=== PATIENT | female | born 1990 | race African-American/Black ===

== ENCOUNTER 2017-01-03 16:22 | Emergency (ER) | payer SELFPAY ==
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
[2017-01-03 16:48] VITALS: BP 114/74; PULSE 90; TEMP 97.9; BMI 25.7
== END 2017-01-03 16:50 | disposition home or self-care (01) ==
LOC: FER 16:22
DX: S46.911A Strain of unspecified muscle, fascia and tendon at shoulder and upper arm level, right arm, initial encounter (principal); M77.8 Other enthesopathies, not elsewhere classified; X58.XXXA Exposure to other specified factors, initial encounter; Y93.89 Activity, other specified; Y92.9 Unspecified place or not applicable; Y99.0 Civilian activity done for income or pay
CPT/HCPCS: 99282-25

== ENCOUNTER 2017-02-12 21:18 | Emergency (ER) | payer SELFPAY ==
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
[2017-02-12 21:35] VITALS: TEMP 98.5; BMI 27.0
[2017-02-12] MEDS ORDERED: ACETAMINOPHEN 325 MG TABLET (FP) PO ONE (22:57)
[2017-02-12] MEDS ORDERED: ACETAMINOPHEN 325 MG TABLET (FP) ONE (23:15)
[2017-02-12] MEDS ORDERED: IBUPROFEN 600 MG TABLET (FP) PO ONE ×2 (23:46→23:50)
[2017-02-12 23:54] VITALS: BP 116/72; PULSE 82
== END 2017-02-12 23:59 | disposition home or self-care (01) ==
LOC: FER 21:18
DX: G44.319 Acute post-traumatic headache, not intractable (principal); S00.83XA Contusion of other part of head, initial encounter; Y04.2XXA Assault by strike against or bumped into by another person, initial encounter
CPT/HCPCS: 70450-TC; 70486-TC; 84703; 99282-25

== ENCOUNTER 2018-01-10 15:02 | Emergency (ER) | payer OTHER ==
[2018-01-10 15:34] VITALS: BP 110/59; PULSE 112; TEMP 98; BMI 26.7
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
[2018-01-10 16:58] LABS: URINE APPEARANCE CLEAR; URINE BILIRUBIN NEGATIVE (<2.0 mg/dL); URINE COLOR STRAW; URINE GLUCOSE (UA) NEGATIVE (NEGATIVE); URINE KETONE TRACE (NEGATIVE); URINE LEUK ESTERASE NEGATIVE (NEGATIVE); URINE NITRITE NEGATIVE (NEGATIVE); URINE PROTEIN NEGATIVE (NEGATIVE); URINE UROBILINOGEN NEGATIVE mg/dL (0.2-1.0)
[2018-01-10] MEDS ORDERED: SODIUM CHLORIDE 1,000 ML IV STA (17:19)
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
[2018-01-10 18:08] LABS: BASO % 0.6 % (0-2.0); EOS % 0.5 % (0-4.5); HEMATOCRIT 33.8 % (32.4-45.2); HEMOGLOBIN 11.3 GM/dL (10.7-15.3); MCHC 33.6 g/dl (32.0-36.0); MEAN CELL VOLUME 89.4 fl (80-96); MEAN PLT VOLUME 9.4 fl (7.5-11.1); MONO % 8.3 % (3.8-10.2); NEUT % 64.6 % (42.8-82.8); PLATELET COUNT 181 K/MM3 (134-434); RBC 3.78 M/mm3 (3.60-5.2); RDW 13.3 % (11.6-15.6)
[2018-01-10 18:42] LABS: ALBUMIN 3.1 g/dl (3.4-5.0); ANION GAP 6 (8-16); BILIRUBIN,TOTAL 0.3 mg/dL (0.2-1.0); BLOOD UREA NITROGEN 6 mg/dL (7-18); CALCIUM 8.4 mg/dL (8.5-10.1); CHLORIDE 103 mmol/L (98-107); CO2 27 mmol/L (21-32); CREATININE 0.6 mg/dL (0.55-1.02); GLUCOSE,RANDOM 75 mg/dL (74-106); POTASSIUM 3.7 mmol/L (3.5-5.1); SGOT/AST 28 U/L (15-37); SGPT/ALT 49 U/L (12-78); SODIUM 136 mmol/L (136-145); TOT PROT 6.6 g/dl (6.4-8.2)
[2018-01-10 18:43] LABS: ALK PHOS 51 U/L (45-117)
--- NOTE | 2018-01-10 19:44 | PDOC ---
*Physical Exam - Vital Signs Last Vital Signs Temp Pulse Resp BP Pulse Ox 98 F 112 H 19 110/59 99 01/10/18 15:27 01/10/18 15:27 01/10/18 15:27 01/10/18 15:27 01/10/18 15:27 ED Treatment Course - LABORATORY CBC & Chemistry Diagram: 01/10/18 17:43 01/10/18 17:43 - ADDITIONAL ORDERS Additional order review: Laboratory Results 01/10/18 01/10/18 17:43 15:53 Sodium 136 Potassium 3.7 Chloride 103 Carbon Dioxide 27 Anion Gap 6 L BUN 6 L Creatinine 0.6 Creat Clearance w eGFR > 60 Random Glucose 75 Calcium 8.4 L Total Bilirubin 0.3 AST 28 ALT 49 Alkaline Phosphatase 51 Total Protein 6.6 Albumin 3.1 L Urine Color Straw Urine Appearance Clear Urine pH 6.0 Ur Specific [place] 1.008 Urine Protein Negative Urine Glucose (UA) Negative Urine Ketones Trace H Urine Blood Negative Urine Nitrite Negative Urine Bilirubin Negative Urine Urobilinogen Negative Ur Leukocyte Esterase Negative 01/10/18 17:43 RBC 3.78 MCV 89.4 MCHC 33.6 RDW 13.3 MPV 9.4 Neutrophils % 64.6 Lymphocytes % 26.0 Monocytes % 8.3 Eosinophils % 0.5 D Basophils % 0.6 - Medications Given in the ED: ED Medications Discontinued Medications Generic Name Dose Route Start Last Admin Trade Name Freq PRN Reason Stop Dose Admin Sodium Chloride 1,000 mls @ 1,000 mls/hr 01/10/18 17:19 01/10/18 17:48 Normal Saline - IV 01/10/18 18:18 1,000 mls/hr ASDIR STA Administration *DC/Admit/Observation/Transfer Diagnosis at time of Disposition: Muscle ache - Discharge Dispostion Disposition: AGAINST MEDICAL ADVICE - Referrals - Patient Instructions Printed Discharge Instructions: DI for Abdominal Pain-Adult Additional Instructions: please return to the ER if you are experiencing severe abdominal pain, vaginal bleeding > 2 pads per hour, fever, or worsening symptomsNote: The patient insists on leaving the emergency dept and is signing out against medical advice. The patient understands the risks and complications that may result from the refusal of medical care and admission which includes and permanent disability. The patient has the mental capacity of understanding the risks of refusing care and is capable of making an informed decision. The patient was instructed to return to the emergency department should change mind regarding medical care or shouldcondition worsen. The patient signed the Against Medical Advice form. Additional Instructions: * Please call your personal physician to report your Emergency Department visit and to report your progress, if any. * If there is no improvement in symptoms in 2 days call your physician. * Return to the Emergency Department for any worsening symptoms. - Post Discharge Activity
== END 2018-01-10 19:56 | disposition left against medical advice (07) ==
LOC: JER 15:02
PROC: 3E0337Z Introduction of Electrolytic and Water Balance Substance into Peripheral Vein, Percutaneous Approach (ICD-10-PCS; principal; 2018-01-10)
DX: O26.892 Other specified pregnancy related conditions, second trimester (principal); S39.011A Strain of muscle, fascia and tendon of abdomen, initial encounter; Z3A.19 19 weeks gestation of pregnancy; Y04.0XXA Assault by unarmed brawl or fight, initial encounter; Y93.89 Activity, other specified; Y92.89 Other specified places as the place of occurrence of the external cause; Y99.8 Other external cause status; Y07.411 Sister, perpetrator of maltreatment and neglect
CPT/HCPCS: 36415; 80053; 81003; 85025; 99285-25; J7030